=== PATIENT | female | born 1955 | race Caucasian/White ===

== ENCOUNTER 2018-04-17 02:02 | Inpatient (IN) | payer OTHER ==
[2018-04-17] MEDS: IV NORMAL SALINE 1000ML BAG 1,000 ML IV ×3 (02:30→20:30)
[2018-04-17] MEDS ORDERED: ACETAMINOPHEN 325 MG TABLET. PO (02:30)
[2018-04-17] MEDS: ZOLPIDEM 5 MG TABLET. PO (02:30)
[2018-04-17] MEDS: ONDANSETRON PF 4 MG/2 ML VIAL. IV ×2 (02:32→10:24)
[2018-04-17 05:17] LABS: ADD MAN DIFF? NO
[2018-04-17 05:22] LABS: BASO % 0 % (0-3); EOS # 0.1 x10^3/uL (0.0-0.7); EOS % 1 % (0-3); HEMATOCRIT 32.4 % (36.0-47.0); HEMOGLOBIN 11.2 g/dL (12.0-15.5); LYMPH # 1.7 x10^3/uL (1.0-4.8); LYMPH % 21 % (24-48); MEAN CORPUSCULAR HEMOGLOBIN 31 pg (25-35); MEAN CORPUSCULAR HGB CONC 35 g/dL (31-37); MEAN CORPUSCULAR VOLUME 90 fL (79-100); MONO # 0.6 x10^3/uL (0.0-1.1); MONO % 7 % (0-9); NEUT % 71 % (31-73); PLATELET COUNT 159 x10^3/uL (140-400); RED BLOOD COUNT 3.62 x10^6/uL (3.50-5.40); RED CELL DISTRIBUTION WIDTH 13.5 % (11.5-14.5); WHITE BLOOD COUNT 8.4 x10^3/uL (4.0-11.0)
[2018-04-17 05:38] LABS: INR 1.2 (0.8-1.1); PARTIAL THROMBOPLASTIN TIME 28 SEC (24-38); PROTHROMBIN TIME PATIENT 14.9 SEC (11.7-14.0)
[2018-04-17] MEDS: fentaNYL PF VIAL 100 MCG/2 ML VIAL IV ×4 (05:39→20:30)
[2018-04-17 05:46] LABS: ANION GAP 6 (6-14); BLOOD UREA NITROGEN 14 mg/dL (7-20); CALCIUM 7.8 mg/dL (8.5-10.1); CARBON DIOXIDE 28 mmol/L (21-32); CHLORIDE 110 mmol/L (98-107); CREATININE 1.2 mg/dL (0.6-1.0); GFR 45.2; GLUCOSE 129 mg/dL (70-99); SODIUM 144 mmol/L (136-145)
[2018-04-17] MEDS ORDERED: BUPIVACAINE-EPI 0.25%-1:200000 50 ML VIAL. (06:47)
[2018-04-17] MEDS ORDERED: ONDANSETRON PF 4 MG/2 ML VIAL. (07:16)
[2018-04-17] MEDS ORDERED: DEXAMETHASONE SOD PHOS 20 MG/5 ML VIAL. (07:16)
[2018-04-17] MEDS ORDERED: PHENYLEPHRINE in 0.9% NACL PF 1 MG/10 ML SYRINGE. IV (07:16)
[2018-04-17] MEDS ORDERED: LIDOCAINE 2% PF Vial for OR 5 ML VIAL. (07:17)
[2018-04-17] MEDS ORDERED: fentaNYL PF VIAL 100 MCG/2 ML VIAL (07:17)
[2018-04-17] MEDS ORDERED: PROPOFOL 20 ML IV (07:17)
[2018-04-17] MEDS: IV RINGERS,LACTATED 1000ML 1,000 ML IV (07:52)
[2018-04-17] MEDS ORDERED: fentaNYL PF VIAL 100 MCG/2 ML VIAL IV ×3 (08:00→12:00)
[2018-04-17] MEDS ORDERED: LIDOCAINE 1% PF 2 ML VIAL. ID (08:00)
[2018-04-17] MEDS ORDERED: PROCHLORPERAZINE 10 MG/2 ML VIAL. IV (08:00)
[2018-04-17] MEDS ORDERED: ONDANSETRON PF 4 MG/2 ML VIAL. IV (08:00)
[2018-04-17] MEDS ORDERED: MORPHINE SULFATE 2 MG/ML DISP.SYRIN. IV (08:00)
[2018-04-17] MEDS ORDERED: ePHEDrine PF IN SALINE 50 MG/5 ML DISP.SYRIN IV (08:26)
[2018-04-17] MEDS ORDERED: SEVOFLURANE 61 TO 120 MINUTES. IH (08:38)
[2018-04-17] MEDS: PANTOPRAZOLE IV PUSH 40 MG VIAL. IVP (11:24)
[2018-04-17] MEDS ORDERED: MORPHINE SULFATE 4 MG/ML DISP.SYRIN. IV ×2 (12:00)
[2018-04-17] MEDS ORDERED: HYDROcodone/APAP 7.5/325MG 1 TAB TABLET PO (12:00)
[2018-04-17] MEDS ORDERED: DEXTROSE 50% 25 GM / 50ML DISP.SYRIN. IV (12:00)
[2018-04-17] MEDS: oxyCODONE IR 5 MG TABLET PO (21:36)
[2018-04-18] MEDS: fentaNYL PF VIAL 100 MCG/2 ML VIAL IV ×4 (01:22→18:21)
[2018-04-18 05:09] LABS: HEMATOCRIT 30.7 % (36.0-47.0); HEMOGLOBIN 10.6 g/dL (12.0-15.5); MEAN CORPUSCULAR HEMOGLOBIN 31 pg (25-35); MEAN CORPUSCULAR HGB CONC 35 g/dL (31-37); MEAN CORPUSCULAR VOLUME 89 fL (79-100); PLATELET COUNT 156 x10^3/uL (140-400); RED BLOOD COUNT 3.46 x10^6/uL (3.50-5.40); RED CELL DISTRIBUTION WIDTH 13.9 % (11.5-14.5); WHITE BLOOD COUNT 12.4 x10^3/uL (4.0-11.0)
[2018-04-18 05:45] LABS: ALBUMIN 2.7 g/dL (3.4-5.0); ALBUMIN/GLOBULIN RATIO 0.9 (1.0-1.7); ALK PHOS 56 U/L (46-116); ALT (SGPT) 9 U/L (14-59); ANION GAP 5 (6-14); AST (SGOT) 13 U/L (15-37); BLOOD UREA NITROGEN 13 mg/dL (7-20); BUN/CREATININE RATIO 10 (6-20); CALCIUM 7.6 mg/dL (8.5-10.1); CARBON DIOXIDE 29 mmol/L (21-32); CHLORIDE 108 mmol/L (98-107); CREATININE 1.3 mg/dL (0.6-1.0); GFR 41.2; GLUCOSE 134 mg/dL (70-99); SODIUM 142 mmol/L (136-145); TOTAL BILIRUBIN 0.9 mg/dL (0.2-1.0); TOTAL PROTEIN 5.8 g/dL (6.4-8.2)
[2018-04-18] MEDS ORDERED: MAGNESIUM HYDROXIDE 2,400 MG/30 ML ORAL.SUSP. PO (06:00)
[2018-04-18] MEDS: PANTOPRAZOLE IV PUSH 40 MG VIAL. IVP (06:11)
[2018-04-18] MEDS: IV NORMAL SALINE 1000ML BAG 1,000 ML IV (08:55)
[2018-04-18] MEDS: SENNOSIDES/DOCUSATE 8.6/50MG TABLET. PO (08:56)
[2018-04-18] MEDS: oxyCODONE IR 5 MG TABLET PO (09:58)
[2018-04-18] MEDS: ONDANSETRON PF 4 MG/2 ML VIAL. IV ×2 (09:58→13:56)
[2018-04-18] MEDS: HYDROcodone/APAP 7.5/325MG 1 TAB TABLET PO (13:56)
[2018-04-18] MEDS ORDERED: BISACODYL 10 MG SUPP.RECT. PR (16:00)
[2018-04-19] MEDS: fentaNYL PF VIAL 100 MCG/2 ML VIAL IV ×6 (00:21→23:29)
[2018-04-19] MEDS: SENNOSIDES/DOCUSATE 8.6/50MG TABLET. PO (08:35)
[2018-04-19] MEDS: PANTOPRAZOLE IV PUSH 40 MG VIAL. IVP (08:35)
[2018-04-19] MEDS: IV NORMAL SALINE 1000ML BAG 1,000 ML IV (13:25)
[2018-04-20] MEDS: IV NORMAL SALINE 1000ML BAG 1,000 ML IV ×2 (02:16→15:18)
[2018-04-20 06:30] LABS: ADD MAN DIFF? NO
[2018-04-20 06:58] LABS: BASO % 0 % (0-3); EOS # 0.2 x10^3/uL (0.0-0.7); EOS % 2 % (0-3); HEMATOCRIT 29.9 % (36.0-47.0); HEMOGLOBIN 10.2 g/dL (12.0-15.5); LYMPH # 1.8 x10^3/uL (1.0-4.8); LYMPH % 22 % (24-48); MEAN CORPUSCULAR HEMOGLOBIN 30 pg (25-35); MEAN CORPUSCULAR HGB CONC 34 g/dL (31-37); MEAN CORPUSCULAR VOLUME 89 fL (79-100); MONO # 0.8 x10^3/uL (0.0-1.1); MONO % 9 % (0-9); NEUT # 5.5 x10^3uL (1.8-7.7); NEUT % 66 % (31-73); PLATELET COUNT 135 x10^3/uL (140-400); RED BLOOD COUNT 3.35 x10^6/uL (3.50-5.40); RED CELL DISTRIBUTION WIDTH 13.4 % (11.5-14.5); WHITE BLOOD COUNT 8.3 x10^3/uL (4.0-11.0)
[2018-04-20 07:02] LABS: ALBUMIN 2.3 g/dL (3.4-5.0); ANION GAP 3 (6-14); BLOOD UREA NITROGEN 13 mg/dL (7-20); CALCIUM 7.7 mg/dL (8.5-10.1); CARBON DIOXIDE 29 mmol/L (21-32); CHLORIDE 108 mmol/L (98-107); GFR 55.8; GLUCOSE 109 mg/dL (70-99); PHOSPHORUS 2.2 mg/dL (2.6-4.7); POTASSIUM 4.1 mmol/L (3.5-5.1); SODIUM 140 mmol/L (136-145)
[2018-04-20] MEDS: SENNOSIDES/DOCUSATE 8.6/50MG TABLET. PO (08:17)
[2018-04-20] MEDS: PANTOPRAZOLE IV PUSH 40 MG VIAL. IVP (08:17)
[2018-04-20] MEDS: oxyCODONE IR 5 MG TABLET PO ×2 (08:22→16:03)
[2018-04-20] MEDS ORDERED: ELECTROLYTE (NON-ICU) PROTOCOL MC (15:15)
[2018-04-20] MEDS: POTASSIUM PHOSPHATE DIBASIC IV ×2 (15:19→17:27)
[2018-04-20] MEDS: DEXTROSE 5% IV ×2 (15:19→17:27)
[2018-04-21] MEDS: IV NORMAL SALINE 1000ML BAG 1,000 ML IV ×2 (03:43→16:26)
[2018-04-21 04:58] LABS: ADD MAN DIFF? NO
[2018-04-21 05:12] LABS: BASO % 0 % (0-3); EOS # 0.3 x10^3/uL (0.0-0.7); EOS % 4 % (0-3); HEMATOCRIT 29.4 % (36.0-47.0); HEMOGLOBIN 10.2 g/dL (12.0-15.5); LYMPH % 28 % (24-48); MEAN CORPUSCULAR HEMOGLOBIN 31 pg (25-35); MEAN CORPUSCULAR HGB CONC 35 g/dL (31-37); MEAN CORPUSCULAR VOLUME 88 fL (79-100); MONO # 0.6 x10^3/uL (0.0-1.1); MONO % 9 % (0-9); NEUT # 4.1 x10^3uL (1.8-7.7); NEUT % 58 % (31-73); PLATELET COUNT 160 x10^3/uL (140-400); RED BLOOD COUNT 3.32 x10^6/uL (3.50-5.40); RED CELL DISTRIBUTION WIDTH 13.1 % (11.5-14.5)
[2018-04-21 05:34] LABS: ALBUMIN 2.2 g/dL (3.4-5.0); ALBUMIN/GLOBULIN RATIO 0.6 (1.0-1.7); ALK PHOS 81 U/L (46-116); ALT (SGPT) 8 U/L (14-59); ANION GAP 2 (6-14); AST (SGOT) 17 U/L (15-37); BLOOD UREA NITROGEN 10 mg/dL (7-20); BUN/CREATININE RATIO 10 (6-20); CALCIUM 7.9 mg/dL (8.5-10.1); CARBON DIOXIDE 31 mmol/L (21-32); CHLORIDE 107 mmol/L (98-107); GFR 55.8; GLUCOSE 106 mg/dL (70-99); SODIUM 140 mmol/L (136-145); TOTAL BILIRUBIN 1.1 mg/dL (0.2-1.0); TOTAL PROTEIN 5.6 g/dL (6.4-8.2)
[2018-04-21] MEDS: PANTOPRAZOLE IV PUSH 40 MG VIAL. IVP (06:11)
[2018-04-21] MEDS: oxyCODONE IR 5 MG TABLET PO ×2 (09:32→19:26)
[2018-04-21] MEDS: SENNOSIDES/DOCUSATE 8.6/50MG TABLET. PO (09:32)
[2018-04-22] MEDS: PANTOPRAZOLE 40 MG TABLET.DR. PO (06:56)
[2018-04-22] MEDS: SENNOSIDES/DOCUSATE 8.6/50MG TABLET. PO (09:28)
[2018-04-22] MEDS: oxyCODONE IR 5 MG TABLET PO (10:47)
[2018-04-23] MEDS: PANTOPRAZOLE 40 MG TABLET.DR. PO (07:26)
[2018-04-23] MEDS: SENNOSIDES/DOCUSATE 8.6/50MG TABLET. PO (07:26)
[2018-04-23] MEDS ORDERED: DOCUSATE SODIUM 100 MG CAPSULE. PO (14:45)
[2018-04-23] MEDS ORDERED: ONDANSETRON PF 4 MG/2 ML VIAL. IV (14:45)
[2018-04-23] MEDS ORDERED: traMADol 50 MG TABLET PO (14:45)
[2018-04-23] MEDS ORDERED: hydrALAZINE 20 MG/ML VIAL. IVP (14:45)
[2018-04-23] MEDS ORDERED: ACETAMINOPHEN 325 MG TABLET. PO (14:45)
[2018-04-23] MEDS ORDERED: MORPHINE SULFATE 4 MG/ML DISP.SYRIN. IV (14:45)
[2018-04-24] MEDS: PANTOPRAZOLE 40 MG TABLET.DR. PO (07:30)
[2018-04-24] MEDS: SENNOSIDES/DOCUSATE 8.6/50MG TABLET. PO (08:01)
[2018-04-25] MEDS: PANTOPRAZOLE 40 MG TABLET.DR. PO (07:30)
[2018-04-25] MEDS: SENNOSIDES/DOCUSATE 8.6/50MG TABLET. PO (07:55)
[2018-04-25] MEDS: POLYETHYLENE GLYCOL 3350 17 GM PACKET. PO (09:09)
[2018-04-26] MEDS: PANTOPRAZOLE 40 MG TABLET.DR. PO (07:30)
[2018-04-26] MEDS: SENNOSIDES/DOCUSATE 8.6/50MG TABLET. PO (09:00)
[2018-04-27] MEDS: oxyCODONE IR 5 MG TABLET PO (01:01)
[2018-04-27] MEDS: PANTOPRAZOLE 40 MG TABLET.DR. PO (07:30)
[2018-04-27] MEDS: SENNOSIDES/DOCUSATE 8.6/50MG TABLET. PO (09:00)
[2018-04-28] MEDS: PANTOPRAZOLE 40 MG TABLET.DR. PO (07:30)
[2018-04-28] MEDS: SENNOSIDES/DOCUSATE 8.6/50MG TABLET. PO (09:00)
[2018-04-29] MEDS: PANTOPRAZOLE 40 MG TABLET.DR. PO (07:30)
[2018-04-29] MEDS: SENNOSIDES/DOCUSATE 8.6/50MG TABLET. PO (09:00)
[2018-04-29] MEDS: oxyCODONE IR 5 MG TABLET PO (15:48)
[2018-04-29] MEDS: LIDOCAINE 2% TOPICAL JELLY 5GM TUBE. TP (16:15)
== END 2018-04-29 17:30 | disposition home health service (06) | DRG 515 ==
LOC: 4 NORTH 02:02
PROC: 0QSD04Z Reposition Right Patella with Internal Fixation Device, Open Approach (ICD-10-PCS; principal; 2018-04-17 08:00)
DX: S82.031A Displaced transverse fracture of right patella, initial encounter for closed fracture (principal); N17.0 Acute kidney failure with tubular necrosis; E43 Unspecified severe protein-calorie malnutrition; C90.00 Multiple myeloma not having achieved remission; E86.0 Dehydration; W01.0XXA Fall on same level from slipping, tripping and stumbling without subsequent striking against object, initial encounter; F41.9 Anxiety disorder, unspecified; E83.39 Other disorders of phosphorus metabolism; Y93.01 Activity, walking, marching and hiking; Y92.89 Other specified places as the place of occurrence of the external cause; Z85.830 Personal history of malignant neoplasm of bone; Z98.51 Tubal ligation status
CPT/HCPCS: 36415; 76000; 80048; 80053; 80069; 85025; 85027; 85610; 85730; 97110-GO; 97110-GP; 97116-GP; 97162-GP; 97166-GO; 97530-GO; 97530-GP; 97535-GO; A7015; C1713; C9113; J0690; J1100; J2370; J2405; J2704; J3010; J7030; J7120